=== PATIENT | male | born 1960 | race Caucasian/White ===

== ENCOUNTER 2022-01-25 00:46 | Emergency (ER) | payer BC ==
[~2022-01-25] VITALS: Ht 188 cm; Wt 99.8 kg
--- NOTE | 2022-01-25 00:48 | NUR ---
Patient walked into ER c/o dog bite 2 hours ago on left hand. Patient is A/Ox4, not in distress.
[2022-01-25] MEDS ORDERED: MONT10TA22 PO (01:03)
[2022-01-25] MEDS ORDERED: CEFAZOLIN 1 G VIAL IM ONE (01:15)
[2022-01-25] MEDS ORDERED: TDAP DIPH,PERTUSS,TET VAC/PF 0.5 ML DISP.SYRIN IM ONE ×2 (01:15→01:21)
[2022-01-25] MEDS ORDERED: CEFAZOLIN 1 G VIAL ONE (01:20)
[2022-01-25] MEDS ORDERED: LIDOCAINE 1%-EPI 1:100,000 20 ML VIAL ONE (01:22)
[2022-01-25] MEDS ORDERED: LIDOCAINE 1%-EPI 1:100,000 20 ML VIAL IJ ONE (01:30)
--- NOTE | 2022-01-25 02:00 | NUR ---
Patient's at bedside
[2022-01-25] MEDS ORDERED: BACITRACIN ZINC OINT 15 GM TUBE ONE (03:09)
[2022-01-25] MEDS ORDERED: AMOX-430 PO ×2 (03:27→03:41)
[2022-01-25] MEDS ORDERED: AMOXICILLIN-CLAVUL 875-125MG TABLET ONE (03:29)
[2022-01-25] MEDS ORDERED: AMOXICILLIN-CLAVUL 875-125MG TABLET PO ONE (03:30)
[2022-01-25] MEDS ORDERED: HYDROCODONE/APAP 10-325 MG TABLET ONE (03:35)
[2022-01-25] MEDS ORDERED: HYDR-4209 PO (03:41)
[2022-01-25] MEDS ORDERED: HYDROCODONE/APAP 10-325 MG TABLET PO ONE (03:45)
--- NOTE | 2022-01-25 03:45 | NUR ---
Patient discharged to home in stable condition. Written and verbal after care instructions given. Patient verbalizes understanding of instructions. Stressed follow up or return to ER for worsening s/s. Patient is A/Ox4, not in distress, able to walk with steady gait. patient is accompanied by his .
[2022-01-25 03:46] VITALS: BP 134/81
== END 2022-01-25 03:45 | disposition home or self-care (01) ==
LOC: ER 01:02
DX: S61.212A Laceration without foreign body of right middle finger without damage to nail, initial encounter (principal); S80.812A Abrasion, left lower leg, initial encounter; W54.0XXA Bitten by dog, initial encounter; W18.39XA Other fall on same level, initial encounter; Y93.K1 Activity, walking an animal; Y92.89 Other specified places as the place of occurrence of the external cause; R51.9 Headache, unspecified; R03.0 Elevated blood-pressure reading, without diagnosis of hypertension
CPT/HCPCS: 12002; 70450; 73130; 90471; 90715; 96372; 99284; J0690; J3490; A4663